=== PATIENT | female | born 2000 | race Caucasian/White ===

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

== ENCOUNTER 2019-02-16 20:15 | Emergency (ER) | payer SELFPAY ==
[~2019-02-16] VITALS: Ht 162.6 cm; Wt 78.3 kg
[~2019-02-16 20:15] MED LIST changes: +FLUT9.9S NASAL; +LORA-186 PO
[2019-02-16 20:23] VITALS: Ht 162.6 cm; Wt 78.3 kg
[2019-02-16] MEDS ORDERED: ACETAMINOPHEN 500 MG TAB PO STA (22:21)
[2019-02-17] MEDS ORDERED: ACET500C5 PO (00:59)
--- NOTE | 2019-02-17 01:07 | ERD ---
ER Documentation Chief Complaint Chief Complaint L SIDE RIB PAIN X'S 1 DAY HPI Patient is a 18-year-old female, past medical history of asthma, who presents to the ER for concerns of left-sided rib pain x1 day. Patient states the pain is localized below her breast. She denies any radiation of the pain. Patient denies any exertional pain. Pain is worse with movement. Patient denies any falls or trauma. Patient denies any left upper extremity pain, vomiting or diaphoresis or loss of consciousness. Patient does report feeling nauseous. Patient denies any shortness of breath. Patient denies any falls or trauma. Patient reports feeling chills. She denies any cough. Patient denies any fevers or chills. Patient states she also had 3+ test at home. Patient denies any vaginal bleeding or pelvic pain. Patient states she is currently breast-feeding her daughter. ROS All systems reviewed and are negative except as per history of present illness. Medications Home Meds Active Scripts Acetaminophen* (Tylophen*) 500 Mg Capsule, 1 CAP PO Q6H PRN for PAIN AND OR ELEVATED TEMP, #20 CAP Prov:OSCAR ORTEGA PA-C 02/17/19 Loratadine* (Claritin*) 10 Mg Tablet, 10 MG PO DAILY, #20 TAB Prov:SKINNY FELICIANO NP 03/14/17 Fluticasone Propionate (Flonase Allergy Relief) 9.9 Ml Jamul.susp, 1 SPRAY NASAL BID, #1 BOTTLE TO EACH NOSTRIL Prov:SKINNY FELICIANO. APURVA 03/14/17 Acetaminophen* (Tylophen*) 500 Mg Capsule, 2 CAP PO Q8H PRN for PAIN AND OR ELEVATED TEMP, #20 CAP Prov:OSCAR ORTEGA PA-C 09/12/16 Allergies Allergies: Coded Allergies: No Known Drug Allergies (Verified Allergy, Unknown, 03/14/17) PMhx/Soc History of Surgery: No Hx Neurological Disorder: No Hx Respiratory Disorders: Yes (ASTHMA) Hx Cardiac Disorders: No Hx Psychiatric Problems: No Hx Miscellaneous Medical Probl: No Hx Alcohol Use: No Hx Substance Use: Yes (CANNABIS, last used 1 week ago) Hx Tobacco Use: No Smoking Status: Never smoker FmHx Family History: No diabetes Physical Exam Vitals Vital Signs Date Temp Pulse Resp B/P (MAP) Pulse Ox O2 O2 Flow FiO2 Time Delivery Rate 02/16/19 99.5 58 18 143/65 100 20:23 (91) Physical Exam GENERAL: Well-developed, well-nourished female. Appears in no acute distress. Patient is speaking in full sentences. HEAD: Normocephalic, atraumatic. EYES: Pupils are equally reactive bilaterally. EOMs grossly intact. No conjunctival erythema. ENT: Moist mucous membranes. No uvula deviation. No kissing tonsils. NECK: Supple. No meningismus. Normal range of motion of the neck. LUNG: Clear to auscultation bilaterally. No rhonchi, wheezing, rales or coarse breath sounds. CHEST WALL: Tenderness to palpation below the left breast. Pain is reproducible. HEART: Regular rate and rhythm. No murmurs, rubs or gallops. Equal pulses in bilateral upper extremities. ABDOMEN: No scars, ecchymosis or rashes noted. Soft, nontender, and nondistended. Positive bowel sounds in all four quadrants. No rebound tenderness, no guarding. (-) McBurney's point tenderness. No CVA tenderness. EXTREMITIES: Equal pulses bilaterally. No peripheral clubbing, cyanosis or edema. No unilateral leg swelling. NEUROLOGIC: Alert and oriented. Moving all four extremities without any difficulty. Normal speech. Steady gait. SKIN: Normal color. Warm and dry. No rashes or lesions. Result Diagram: 02/16/19222402/16/192224 Results 24 hrs Laboratory Tests Test 02/16/19 22:15 02/16/19 22:19 02/16/19 22:25 02/16/19 22:48 Urine Color YELLOW Urine Clarity SLIGHTLY CLOUDY Urine pH 6.0 Urine Specific 1.008 [place] Urine Ketones NEGATIVE mg/dL Urine Nitrite NEGATIVE mg/dL Urine Bilirubin NEGATIVE mg/dL Urine NEGATIVE mg/dL Urobilinogen Urine Leukocyte NEGATIVE Elissa/ul Esterase Urine 2 /HPF Microscopic RBC Urine 2 /HPF Microscopic WBC Urine Squamous FEW /HPF Epithelial Cells Urine Bacteria FEW /HPF Urine Mucus FEW /HPF Urine Hemoglobin NEGATIVE mg/dL Urine Glucose NEGATIVE mg/dL Urine Total NEGATIVE mg/dl Protein POC Beta HCG, POSITIVE POSITIVE Qualitative White Blood 9.9 10^3/ul Count Red Blood Count 4.70 10^6/ul Hemoglobin 13.5 g/dl Hematocrit 41.2 % Mean Corpuscular 87.7 fl Volume Mean Corpuscular 28.7 pg Hemoglobin Mean Corpuscular 32.8 g/dl Hemoglobin Annalisa nt Red Cell 12.7 % Distribution Width Platelet Count 279 10^3/UL Mean Platelet 10.9 fl Volume Immature 0.200 % Granulocytes % Neutrophils % 60.2 % Lymphocytes % 26.4 % Monocytes % 8.4 % Eosinophils % 4.2 % Basophils % 0.6 % Nucleated Red 0.0 /100WBC Blood Cells % Immature 0.020 10^3/ul Granulocytes # Neutrophils # 5.9 10^3/ul Lymphocytes # 2.6 10^3/ul Monocytes # 0.8 10^3/ul Eosinophils # 0.4 10^3/ul Basophils # 0.1 10^3/ul Nucleated Red 0.0 10^3/ul Blood Cells # Sodium Level 143 mmol/L Potassium Level 4.5 mmol/L Chloride Level 104 mmol/L Carbon Dioxide 24 mmol/L Level Anion Gap 15 Blood Urea 7 mg/dl Nitrogen Creatinine 0.60 mg/dl Est Glomerular > 60 mL/min Filtrat Rate mL/min Glucose Level 111 mg/dl Calcium Level 9.8 mg/dl Total Bilirubin 0.3 mg/dl Direct Bilirubin 0.00 mg/dl Indirect 0.3 mg/dl Bilirubin Aspartate Amino 14 IU/L Transf (AST/SGOT ) Alanine 12 IU/L Aminotransferase (ALT/SGPT) Alkaline 74 IU/L Phosphatase Troponin I < 0.012 ng/ml Total Protein 7.5 g/dl Albumin 4.6 g/dl Globulin 2.90 g/dl Albumin/Globulin 1.58 Ratio Lipase 99 U/L Beta HCG, 08632.0 mIU/ml Quantitative Current Medications Medications Dose Sig/Jesu Start Time Status Last (Trade) Ordered Route PRN Stop Time Admin Dose Reason Admin 1,000 mg ONCE STAT 02/16/19 DC 02/16/19 Acetaminophen PO 22:21 22:39 (Tylenol 02/16/19 22:23 Tab) Procedures/MDM ED COURSE: The patient was stable throughout ED course. I kept the patient and/or family informed of laboratory and diagnostic imaging results throughout the ED course. EKG: Read by Dr. Cervantes, attending physician. EKG shows sinus bradycardia with marked sinus arrhythmia with short AZ at 48 bpm No arrhythmias, acute ST elevations or T wave changes were noted. DIAGNOSTIC IMAGING: Read by radiologist. DIAGNOSTIC IMAGING REPORT Patient: MESERET ROLAND : 2000 Age: 18 Sex: F MR #: [id number] DOS: 02/16/19 2221 Ordering MD: OSCAR ORTEGA PA-C Location: [facility] Room/Bed: PROCEDURE: OB Ultrasound. CLINICAL INDICATION: Positive test. Pelvic pain. TECHNIQUE: Ultrasound of the pelvis was performed with transabdominal sonography in the axial and sagittal planes. COMPARISON: No prior study is available for comparison. FINDINGS: There is a single intrauterine gestational sac. Yolk sac is present. pole is visualized. There is heart motion. heart rate is 163 beats per minute. [employer]-rump length is 2.53 cm. Mean sac diameter is 3.12 cm. Menstrual age by ultrasound dates is 8 weeks 5 days. This indicates an expected date of delivery of 09/23/2019. The right ovary appears normal measuring 3.3 x 2.7 x 2.3 cm. The left ovary appears normal measuring 3.4 x 1.5 x 2.9 cm. Color Doppler and pulsed Doppler sonography demonstrate normal flow to the ovaries. There is no other pelvic mass or free fluid. IMPRESSION: 1. Single live intrauterine gestation of 8 weeks 5 days menstrual age by ultrasound dates. 2. Expected date of delivery is 09/23/2019. RPTAT: QQ .Germán Malcolm MD, MD Date Time Electronically viewed and signed by .Germán Malcolm MD, MD on 02/16/2019 23:43 .R/ CC: OSCAR ORTEGA PA-C [id number] MEDICAL DECISION MAKING: Patient is a 18-year-old female, past medical history of asthma, who presents to the ER for concerns of left-sided rib pain x1 day. Patient also states she has had 3+ home tests. Patient denies vaginal bleeding or pelvic pain. Vital signs were reviewed. Patient is afebrile. Patient was not hypoxic. Patient was hemodynamically stable. On exam, patient did have reproducible left-sided chest wall pain. EKG was obtained and showed marked sinus bradycardia with marked sinus arrhythmia with short AZ. Reviewed by ED attending Dr. Cervantes. No STEMI. Blood work was obtained. CBC showed no evidence of systemic infection or anemia. CMP showed no severe electrolyte abnormalities, alkalosis, acidosis, renal injury or liver failure. Patient's troponin was within normal limits. Patient's urine test was positive. It was negative. Beta-hCG was obtained and was [id number]. Pelvic ultrasound showed live intrauterine gestation of 8 weeks and 5 days. Chest x-ray was not performed as patient is . I did explain to the patient unable to rule out pneumonia, pneumothorax, pleural effusion however suspicions are low. Patient's O2 sat was within normal limits. Patient with fevers or cough. At this time, patient's presentation is most consistent with left-sided chest wall pain and new onset . Differential diagnosis included but not li mited to acute abdomen, ACS, pericarditis, sepsis, severe electrolyte abnormalities, PE, rib fracture, pyelonephritis, nephrolithiasis, spontaneous , missed , demise. Patient was nontoxic, [id number] prior to discharge. Patient was advised to follow-up with [facility]. Referral information provided. PRESCRIPTION: Tylenol DISCHARGE: At this time, patient is stable for discharge and outpatient management. I have instructed the patient to follow-up with his/her primary care physician in 1-2 days. I have discussed with the patient the possibility of needing to see a specialist for further workup and imaging studies if symptoms persist. I have instructed the patient to promptly return to the ER for any new or worsening symptoms including increased pain, fever, nausea, vomiting, weakness or LOC. The patient and/or family expressed understanding of and agreement with this plan. All questions were answered. Home care instructions were provided. Disclaimer: Inadvertent spelling and grammatical errors are likely due to EHR/dictation software use and do not reflect on the overall quality of patient care. Also, please note that the electronic time recorded on this note does not necessarily reflect the actual time of the patient encounter. Departure Diagnosis: Primary Impression: Rib pain on left side Additional Impression: Weeks of gestation: unspecified Qualified Codes: Z34.90 - Encounter for supervision of normal , unspecified, unspecified trimester Condition: Fair Patient Instructions: Chest Wall Pain, Costochondritis Referrals: COMMUNITY CLINICS YOU HAVE RECEIVED A MEDICAL SCREENING EXAM AND THE RESULTS INDICATE THAT YOU DO NOT HAVE A CONDITION THAT REQUIRES URGENT TREATMENT IN THE EMERGENCY DEPARTMENT. FURTHER EVALUATION AND TREATMENT OF YOUR CONDITION CAN WAIT UNTIL YOU ARE SEEN IN YOUR DOCTORS OFFICE WITHIN THE NEXT 1-2 DAYS. IT IS YOUR RESPONSIBILITY TO MAKE AN APPOINTMENT FOR FOLOW-UP CARE. IF YOU HAVE A PRIMARY DOCTOR --you should call your primary doctor and schedule an appointment IF YOU DO NOT HAVE A PRIMARY DOCTOR YOU CAN CALL OUR PHYSICIAN REFERRAL HOTLINE AT IF YOU CAN NOT AFFORD TO SEE A PHYSICIAN YOU CAN CHOSE FROM THE FOLLOWING [facility] [address] [facility]. [facility] [address] [facility]. [facility] [address] [facility] [facility] [address] [facility]. [facility] [address] [facility]. [facility] [address] [facility]. [facility] YOU HAVE RECEIVED A MEDICAL SCREENING EXAM AND THE RESULTS INDICATE THAT YOU DO NOT HAVE A CONDITION THAT REQUIRES URGENT TREATMENT IN THE EMERGENCY DEPARTMENT. FURTHER EVALUATION AND TREATMENT OF YOUR CONDITION CAN WAIT UNTIL YOU ARE SEEN IN YOUR DOCTORS OFFICE WITHIN THE NEXT 1-2 DAYS. IT IS YOUR RESPONSIBILITY TO MAKE AN APPOINTMENT FOR FOLOW-UP CARE. IF YOU HAVE A PRIMARY DOCTOR --you should call your primary doctor and schedule and appointment IF YOU DO NOT HAVE A PRIMARY DOCTOR YOU CAN CALL OUR PHYSICIAN REFERRAL HOTLINE AT . IF YOU CAN NOT AFFORD TO SEE A PHYSICIAN YOU CAN CHOSE FROM THE FOLLOWING [facility]: [facility] [address] [place] [address] [facility] [address] [place] [address] [facility] + [facility] [address] [place] [address] [facility] [address] [facility] [address] [place] [address] OFFICE FAX , JOCELYN [address] [place] [address] [address] [place] [place] [address] [place] [address] [address] CHENG, [facility] [address], [address], [facility] [address] [address] FOSTER, [facility] [address] [place] [address] [facility] [address] [place] [address] [address] [facility] [address] - SHAVONNE SHEEHAN [address] [facility]. [address] [place] [address] DR MANRIQUE, BAR[place] [address] [facility]. [address], [place] [address] [address] [facility] [address] [place], [place] [id number] Additional Instructions: Call your primary care doctor TOMORROW for an appointment during the next 1-2 days.See the doctor sooner or return here if your condition worsens before your appointment time. OSCAR ORTEGA PA-C Feb 17, 2019 01:07
[2019-02-17 01:22] VITALS: BP 111/72; PULSE 53; RESP 18
== END 2019-02-17 01:23 | disposition home or self-care (01) ==
LOC: FTE 20:15
DX: O26.891 Other specified pregnancy related conditions, first trimester (principal); R07.81 Pleurodynia; R10.2 Pelvic and perineal pain; Z3A.08 8 weeks gestation of pregnancy
CPT/HCPCS: 36415; 76801; 80053; 81001; 81003; 81025; 83690; 84484; 84702; 85025; 86900; 86901; 93005